=== PATIENT | female | born 1985 | race Caucasian/White ===

== ENCOUNTER 2024-01-29 18:27 | Emergency (ER) | payer BC, SELFPAY ==
--- NOTE | ~2024-01-29 | US_ITS ---
EXAMINATION: US pelvic complete w TV DATE: 01/29/2024 23:15 INDICATION: pelvic pain and bleeding TECHNIQUE: Multiple transabdominal and endovaginal sonographic images of the pelvis were obtained. COMPARISON: 10/11/2019, report only. FINDINGS: Uterus: 7.8 x 3.3 x 4.9 cm. Trace fluid and debris in the endometrial canal, given the history this l ikely represents hemorrhage. Endometrial complex measures 4 mm. Right Ovary: 2.6 x 1.4 x 2.5 cm. Vascular flow is present. 1.4 cm simple cyst or dominant follicle. Left Ovary: 2.5 x 1.5 x 1.7 cm. Vascular flow is present. There is no free fluid in the pelvis. IMPRESSION: Unremarkable pelvic ultrasound findings. Reviewed, dictated and finalized at location [facility].
[2024-01-29 18:35] VITALS: BP 140/100; PULSE 81; RESP 16; TEMP 36.4; O2SAT 100
[2024-01-29 18:50] LABS: Bacteria Urine None Seen /hpf; Non Pathogenic Casts 0-2; RBC Urine >100 /hpf (0-2); Squamous Epithelial Cell Urine None Seen /hpf (Few); WBC Urine 0-5 /hpf (0-3)
[2024-01-29 19:01] LABS: Appearance Urine Clear (Clear); Bilirubin Urine Negative (Negative); Blood Urine 3+ (Negative); Glucose Urine UA Negative (Negative); Ketones Urine Negative (Negative); Leukocyte Esterase Ur Negative LEU/UL (Negative); Nitrate Urine Negative (Negative); Protein Urine Negative (Negative); Urobilinogen Urine 0.2 mg/dL (<2.0)
[2024-01-29 19:02] LABS: Color Urine Light Red (Yellow)
[2024-01-29 19:03] LABS: Add Urine Microscopic? YES
[2024-01-29 19:34] LABS: Basophils Absolute Auto 0.1 K/mm3 (0.0-0.1); Basophils Percent Auto 0.7 % (0.2-1.2); Eosinophils Absolute Auto 0.2 K/mm3 (0-0.3); Eosinophils Percent Auto 1.7 % (0-4.4); Hematocrit 39.4 % (37.0-47.0); Hemoglobin 13.1 g/dL (12.0-15.0); Immature Granulocyte Absolute 0.03 K/mm3 (0.00-0.031); Immature Granulocyte Percent A 0.3 % (0-0.5); Lymphocytes Absolute Auto 1.86 K/mm3 (0.9-3.2); Lymphocytes Percent Auto 20.5 % (18.3-44.2); Mean Corpuscular HGB Conc 33.2 g/dl (32-36); Mean Corpuscular Hemoglobin 30.4 pg (26-34); Mean Corpuscular Volume 91.4 fl (80-100); Mean Platelet Volume 11.9 fl (7.4-10.4); Monocytes Absolute Auto 0.8 K/mm3 (0.1-0.6); Monocytes Percent Auto 8.5 % (2.6-8.5); Neutrophils Absolute Auto 6.2 K/mm3 (1.3-6.7); Neutrophils Percent Auto 68.3 % (45.5-73.1); Platelet Count Result 170 k/mm3 (150-375); Red Blood Count 4.31 M/mm3 (4.2-5.4); Red Cell Distribution Width 13.2 % (11.5-14.5); White Blood Count 9.1 K/mm3 (4.5-10.0)
[2024-01-29 19:44] LABS: Alanine Aminotransferase 19 U/L (6-35); Albumin Level 4.8 g/dL (3.5-5.1); Alkaline Phosphatase 35 U/L (38-126); Anion Gap 5 mmol/L (4-12); Aspartate Amino Transferase 22 U/L (14-36); Bilirubin,Total 1.4 mg/dL (0.2-1.3); Blood Urea Nitrogen 14 mg/dL (7-17); Calcium 9.2 mg/dL (8.4-10.2); Carbon Dioxide 27 mmol/L (22-30); Chloride 105 mmol/L (98-107); Estimated CRCL calculation 59 ml/min; Estimated Glomerular Filt Rate > 60; Glucose 96 mg/dL (65-110); Potassium 4.2 mmol/L (3.4-5.0); Sodium 137 mmol/L (137-145)
--- NOTE | 2024-01-29 20:02 | ED.FEMALEGU ---
HPI - Female Genitourinary General Chief complaint: Vaginal Bleeding Stated complaint: vaginal bleeding heavier than usual Time Seen by Provider: 01/29/24 19:23 History of Present Illness HPI Narrative: 38-year-old female who presents to the emergency department for vaginal bleeding that started last night. Patient states her last menstrual period was approximately 2 weeks ago. States her periods range between 23 does 27 days normally in this is abnormal for her to bleeding between her periods. States she has gone through 8 light tampons in the past 15 hours. States she called her OBGYN, Debbie Sims, who advised her to come to the ER for further evaluation. The patient is reporting some left lower quadrant/suprapubic pain that was worse about an hour prior to arrival. She denies fever, nausea vomiting, dysuria hematuria, vaginal discharge or concern for STDs. She reports a history of 2 sections, her last being 13 years ago, LEEP procedure 13 years ago, and egg donation 9 years ago. Otherwise denies abdominal surgeries or procedures. She does state that she feels somewhat constipated and has increased emotions. Her last bowel movement was 2 days ago normal. She is not anticoagulated. Related Data Allergies Allergy/AdvReac Type Severity Reaction Status Date / Time morphine Allergy Unknown Verified 12/23/16 12:05 COCONUT Allergy Unknown Itching Uncoded 12/29/17 11:38 Review of Systems Review of Systems: CONSTITUTIONAL: Denies fever, chills, or sweats. EYES: Denies visual changes, redness, or discharge. ENT: Denies rhinorrhea, congestion, sore throat, or otalgia. CARDIOVASCULAR: Denies chest pain, palpitations, or edema. RESPIRATORY: Denies cough or dyspnea. GASTROINTESTINAL: See HPI GENITOURINARY: See HPI SKIN: Denies rash or itching. MUSCULOSKELETAL: Denies back pain, joint pain, or myalgia. NEUROLOGIC: Denies headache, numbness, or weakness. PSYCHIATRIC: Denies anxiety or depression. [facility] Family History Family History Grandparent Family history of malignant neoplasm of breast Social History Social History Smoking status: Never smoker Alcohol intake: never Exam Narrative: GENERAL: Well-appearing, well-nourished, and in no acute distress. HEAD: Normocephalic, atraumatic. EYES: PERRLA and EOMI. ENT: Nares clear, no rhinorrhea or epistaxis. Mucous membranes moist. NECK: Supple. CHEST: Clear to auscultation. No respiratory distress. HEART: Regular rate and rhythm. No murmur heard. Normal peripheral pulses. ABDOMEN: Soft, nontender, nondistended, normal active bowel sounds. No guarding, rebound, or rigidity. : Normal external genitalia without rashes or lesions. Mild amount of blood in vaginal vault. Cervical os closed. No large clots purulence. No cervical motion tenderness. No adnexal masses or tenderness on palpation. EXTREMITIES: Normal range of motion. No edema. SKIN: Warm, dry, no rash. NEURO: No focal deficits. Alert and oriented x3 Course Vital Signs Vital signs: Vital Signs Temperature 97.6 F 01/29/24 18:35 Pulse Rate 81 01/29/24 18:35 Respiratory Rate 16 01/29/24 18:35 Blood Pressure 140/100 H 01/29/24 18:35 Pulse Oximetry 100 01/29/24 18:35 Oxygen Delivery Room Air 01/29/24 18:35 Temperature 97.6 F 01/29/24 18:35 Pulse Rate 81 01/29/24 18:35 Respiratory Rate 16 01/29/24 18:35 Blood Pressure 140/100 H 01/29/24 18:35 Pulse Oximetry 100 01/29/24 18:35 Oxygen Delivery Room Air 01/29/24 18:35 MDM - Female Genitourinary MDM Narrative Medical decision making narrative: 38-year-old female presents to emergency department for vaginal bleeding that started last night. See HPI for further history. Triage vital significant for blood pressure 140/100, otherwise unremarkable. She is well-appearing on exam. See exam
== END 2024-01-30 00:19 | disposition home or self-care (01) ==
PROVIDERS: Emergency Medicine; Emergency Provider Physician Assistant
DX: N93.8 Other specified abnormal uterine and vaginal bleeding (principal)
CPT/HCPCS: 36415; 76830; 76856; 80053; 81001; 81025; 85025; 99284

== ENCOUNTER 2024-05-20 15:42 | Outpatient (CLI) | payer BC, SELFPAY ==
[2024-05-20 16:49] LABS: Erythrocyte Sedimentation Rate 8 mm/hr (0-20)
[2024-05-20 16:53] LABS: CRP < 0.5 mg/dL (<1.0)
== END 2024-05-20 15:43 | disposition home or self-care (01) ==
LOC: ANHLAB 15:43
PROVIDERS: PCP Family Medicine; Visit Provider Nurse Practitioner Family
DX: R10.9 Unspecified abdominal pain (principal); R14.0 Abdominal distension (gaseous)
CPT/HCPCS: 36415; 84443; 85652; 86140

== ENCOUNTER 2024-06-10 00:20 | Day surgery (SDC) | payer BC, SELFPAY ==
[2024-05-20 13:07] VITALS: BMI 23.8
--- NOTE | 2024-06-09 11:21 | SUR.PREOP ---
Patient called to report that she had a bowl of cereal this morning at 0600 when she was supposed to start on clear liquids today, 06/09/2024, for her procedure tomorrow 06/10/2024. I told her that as long as that is all she ate and that she starts on clear liquids only that we can still proceed with procedure as planned.
[2024-06-10 06:31] VITALS: BP 115/74; PULSE 84; RESP 20; TEMP 36.2; O2SAT 100; BMI 23.3
[2024-06-10] MEDS: LACTATED RINGERS 1,000 ML 150 ML IV CONT (06:39)
--- NOTE | 2024-06-10 07:20 | WPDANESEPPF ---
Anes - Initial Pre Proc Eval Procedure: Operation Date: 06/10/24 07:30 Proposed Procedures p Esophagogastroduodenoscopy & Colonoscopy - Keith Covington MD Date/Time: 06/10/24 07:20 Surgeon: Keith Covington MD Pre Op Diagnosis: Abdominal distension RLQ pain,abdominal pain Patient Data Age: 39 Gender: F Height: 1.63 m Weight: 61.5 kg Allergies Allergy/AdvReac Type Severity Reaction Status Date / Time amoxicillin Allergy Severe Other Verified 06/10/24 06:27 morphine Allergy Intermediate Itching Verified 05/20/24 13:09 COCONUT Allergy Severe Swelling Uncoded 05/20/24 13:09 of Lip/Tongue/Throat Home Medications Medication Instructions Recorded Confirmed Type buspirone 5 mg tablet 5 mg PO DAILY #30 tabs 02/26/24 06/10/24 Rx cetirizine 10 mg tablet (Zyrtec) 10 mg PO DAILY #30 tabs 02/26/24 06/10/24 Rx Lactobacillus 1 cap PO DAILY 06/10/24 06/10/24 History acidophilus-Bifidobac.animalis 2.5 billion cell capsule (Daily Probiotic) Patient hx anesthesia problems: none Family hx anesthesia problems: none Results Review: All pre-operative results and documents have been reviewed as part of the pre-operative evaluation. [facility] Past Medical History Medical History (Updated 04/25/24 @ 09:50 by EDOUARD Ochoa) Alternating constipation and diarrhea Anxiety Right lower quadrant pain Surgical History Surgical History History of breast augmentation 2018 History of section 2006, 2010 History of cholecystectomy 2007 History of egg donation 2010, 2012 History of loop electrical excision procedure (LEEP) 2009 Family History Family History Grandparent Family history of malignant neoplasm of breast Alcoholism Asthma Diabetes mellitus Heart disease Father Asthma Alcoholism Heart disease Mother No problems noted. Social History Social History Smoking status: Never smoker Alcohol intake: current Substance use: never Substance use type: does not use Do You Feel Safe in your Home?: Yes Lack of Transportation: No Lack of Food: Never True Current Housing: I Have Housing Concerned About Future Housing: No Difficulty Paying Gas/Electric Bills: No Difficulty Paying for Meds: No Currently Unemployed: No Education: Master's Degree or Higher Difficulty w/ Childcare or Family Care: No Living arrangements: with family Occupation/Education: occupation Gender identity (if verbalized by the patient): Female Sexual Orientation (if Verbalized by the Patient): Straight or Heterosexual Spiritual care concerns: No Anes - Eval Final PreProcedure Day of Procedure 06/10/24 07:20 Patient weight: normal Heart: regular rate and rhythm Lungs: clear to auscultation Airway: Mallampati scale class II Neurological: alert and oriented Last oral intake: >/= 8 hours ASA classification: II Emergent: no Anesthetic plan: proceed Anesthesia type and monitoring: general GIVS and standard monitoring Results Review: All pre-operative results and documents have been reviewed as part of the pre-operative evaluation. Informed Consent: The patient's anesthetic plan and its attendant risks and benefits were discussed with the patient/family/POA. Questions were solicited and answers provided to the satisfaction of the patient/family/POA.
--- NOTE | 2024-06-10 07:30 | PM.HPGS ---
History of Present Illness History of Present Illness Consent: Risks, benefits, and alternatives have been discussed and questions answered. Patient agrees to proceed with procedure. Chief complaint: Abdominal distension RLQ pain,abdominal pain Narrative: Aminta Li is a 39 year old female with bloating and alternating diarrhea and constipation for years, had colonoscopy about 13 years ago Review of Systems Review of Systems: All systems reviewed & are unremarkable except as noted in HPI and below PMFSH Past Medical History Medical History (Updated 06/10/24 @ 07:31 by Keith Covington MD) Alternating constipation and diarrhea Anxiety Bloating Right lower quadrant pain Surgical History Surgical History History of breast augmentation 2018 History of section 2006, 2009 History of cholecystectomy 2006 History of egg donation 2010, 2012 History of loop electrical excision procedure (LEEP) 2009 Family History Family History Grandparent Family history of malignant neoplasm of breast Alcoholism Asthma Diabetes mellitus Heart disease Father Asthma Alcoholism Heart disease Mother No problems noted. Social History Social History Smoking status: Never smoker Alcohol intake: current Substance use: never Substance use type: does not use Do You Feel Safe in your Home?: Yes Lack of Transportation: No Lack of Food: Never True Current Housing: I Have Housing Concerned About Future Housing: No Difficulty Paying Gas/Electric Bills: No Difficulty Paying for Meds: No Currently Unemployed: No Education: Master's Degree or Higher Difficulty w/ Childcare or Family Care: No Living arrangements: with family Occupation/Education: occupation Gender identity (if verbalized by the patient): Female Sexual Orientation (if Verbalized by the Patient): Straight or Heterosexual Spiritual care concerns: No Meds Home Medications and Allergies Home Medications Medication Instructions Recorded Confirmed Type buspirone 5 mg tablet 5 mg PO DAILY #30 tabs 02/26/24 06/10/24 Rx cetirizine 10 mg tablet (Zyrtec) 10 mg PO DAILY #30 tabs 02/26/24 06/10/24 Rx Lactobacillus 1 cap PO DAILY 06/10/24 06/10/24 History acidophilus-Bifidobac.animalis 2.5 billion cell capsule (Daily Probiotic) Allergies Allergy/AdvReac Type Severity Reaction Status Date / Time amoxicillin Allergy Severe Other Verified 06/10/24 06:27 morphine Allergy Intermediate Itching Verified 05/20/24 13:09 COCONUT Allergy Severe Swelling Uncoded 05/20/24 13:09 of Lip/Tongue/Throat Exam Const: General: comfortable and no acute distress HENMT: Face/Nose/Sinus: Normal nares present Eyes: General: appearance normal, both eyes and all related structures Neck: Neck: no JVD Resp: Auscultation: clear to auscultation bilaterally Cardio: Rate: regular rate Rhythm: regular rhythm GI: Inspection: non-distended GI Palp: Yes Soft to palpation Skin: General skin exam: normal color Neuro: General: gait normal Speech: normal speech Extrem: General: normal to inspection Psych: Mental Status: mental status grossly normal Assessment and Plan Assessment and plan (1) Alternating constipation and diarrhea: Code(s): R19.8 - Other specified symptoms and signs involving the digestive system and abdomen Status: Acute Assessment and Plan: colonoscopy (2) Bloating: Code(s): R14.0 - Abdominal distension (gaseous) Status: Acute Assessment and Plan: egd with bx
--- NOTE | 2024-06-10 07:41 | SUR.OPER ---
EGD [id number]. Colon start 0741.
[2024-06-10 07:45] LABS: BEDSIDEPREGUCG Negative
[2024-06-10 07:50] VITALS: BP 110/61; PULSE 78; RESP 20; O2SAT 100
[2024-06-10 08:00] VITALS: BP 121/54; PULSE 82; RESP 18; O2SAT 100
[2024-06-10 08:10] VITALS: BP 111/73; PULSE 74; RESP 18; O2SAT 100
== END 2024-06-10 08:30 | disposition home or self-care (01) ==
PROVIDERS: PCP Family Medicine; Referring Provider Nurse Practitioner Family; Visit Provider Internal Medicine Gastroenterology
PROC: 0DJ08ZZ Inspection of Upper Intestinal Tract, Via Natural or Artificial Opening Endoscopic (ICD-10-PCS; CPT 43235; principal; 2024-06-10 07:30)
DX: K29.50 Unspecified chronic gastritis without bleeding (principal); K44.9 Diaphragmatic hernia without obstruction or gangrene; F41.9 Anxiety disorder, unspecified; Z98.890 Other specified postprocedural states; Z90.49 Acquired absence of other specified parts of digestive tract; Z80.3 Family history of malignant neoplasm of breast; Z82.49 Family history of ischemic heart disease and other diseases of the circulatory system
CPT/HCPCS: 43239; 45380; 88305; J2704; J7120

== ENCOUNTER 2024-06-24 08:09 | Emergency (ER) | payer BC, SELFPAY ==
[2024-06-24 08:22] VITALS: BP 119/74; PULSE 82; RESP 16; TEMP 36.7; O2SAT 100
[2024-06-24 08:24] VITALS: BP 119/74; PULSE 82; RESP 16; TEMP 36.7; O2SAT 100
--- NOTE | 2024-06-24 08:29 | ED.SKABFB ---
HPI - Skin/Abscess/Foreign Bdy General Chief complaint: Skin/Abscess/Foreign Body Stated complaint: ?Poison Jennifer Time Seen by Provider: 06/24/24 08:29 Source: patient Mode of arrival: ambulatory Limitations: no limitations History of Present Illness HPI narrative: 39-year-old female presents with complaint of poison jennifer rash for 2-3 days. Patient reports rash to bilateral arms, legs, trunk. Yesterday began having swelling to right eyelid and upper lip. Patient taking Benadryl And applying calamine lotion. All systems reviewed and negative except as noted above. Related Data Home Medications Medication Instructions Recorded Confirmed Lactobacillus 1 cap PO DAILY 06/10/24 06/24/24 acidophilus-Bifidobac.animalis 2.5 billion cell capsule (Daily Probiotic) Allergies Allergy/AdvReac Type Severity Reaction Status Date / Time amoxicillin Allergy Severe Other Verified 06/24/24 08:23 morphine Allergy Intermediate Itching Verified 06/24/24 08:23 COCONUT Allergy Severe Swelling Uncoded 06/24/24 08:23 of Lip/Tongue/Throat Review of Systems Review of Systems: CONSTITUTIONAL: Denies fever, chills, or sweats. EYES: Denies visual changes, redness, or discharge. ENT: Denies rhinorrhea, congestion, sore throat, or otalgia. CARDIOVASCULAR: Denies chest pain, palpitations, or edema. RESPIRATORY: Denies cough or dyspnea. GASTROINTESTINAL: Denies abdominal pain, nausea, vomiting, or diarrhea. GENITOURINARY: Denies dysuria or hematuria. SKIN: Reports rash and itching. MUSCULOSKELETAL: Denies back pain, joint pain, or myalgia. NEUROLOGIC: Denies headache, numbness, or weakness. PSYCHIATRIC: Denies anxiety or depression. All other systems reviewed are negative, except as documented in HPI. [facility] Past Medical History Medical History (Updated 06/24/24 @ 08:34 by Iesha Santiago NP) Alternating constipation and diarrhea Anxiety Bloating Right lower quadrant pain Surgical History Surgical History History of breast augmentation 2018 History of section 2006, 2010 History of cholecystectomy 2007 History of egg donation 2010, 2013 History of loop electrical excision procedure (LEEP) 2009 Family History Family History Grandparent Family history of malignant neoplasm of breast Alcoholism Asthma Diabetes mellitus Heart disease Father Asthma Alcoholism Heart disease Mother No problems noted. Social History Social History Smoking status: Never smoker Alcohol intake: current Substance use: never Substance use type: does not use Do You Feel Safe in your Home?: Yes Lack of Transportation: No Lack of Food: Never True Current Housing: I Have Housing Concerned About Future Housing: No Difficulty Paying Gas/Electric Bills: No Difficulty Paying for Meds: No Currently Unemployed: No Education: Master's Degree or Higher Difficulty w/ Childcare or Family Care: No Living arrangements: with family Occupation/Education: occupation Gender identity (if verbalized by the patient): Female Sexual Orientation (if Verbalized by the Patient): Straight or Heterosexual Spiritual care concerns: No Comments At time of signature, agree with nursing past medical, surgical, social and family history. There is no relevant family history pertinent to the presenting complaint. Exam Narrative: GENERAL: This is a well-nourished, well-developed patient, in no apparent distress. HEAD: normocephalic, atraumatic. EYES: PERRL. Sclera clear/white. Vision is grossly intact. EARS: External ears normal NOSE: External nose normal THROAT: Mucous membranes moist, posterior pharynx clear. NECK: Neck supple, non-tender without lymphadenopathy, masses or thyromegaly. CARDIOVASCULAR: Regular
== END 2024-06-24 08:40 | disposition home or self-care (01) ==
PROVIDERS: Emergency Provider Nurse Practitioner Family; PCP Family Medicine
DX: L25.5 Unspecified contact dermatitis due to plants, except food (principal)
CPT/HCPCS: 99213; G0463

== ENCOUNTER 2024-12-27 12:37 | Outpatient (CLI) | payer BC, SELFPAY | END 2024-12-27 12:38 | disposition home or self-care (01) | LOC: ANHIMG 12:38 | PROVIDERS: PCP Family Medicine | DX: M54.2 Cervicalgia (principal) | CPT/HCPCS: 72040 ==